=== PATIENT | female | born 1990 | race Caucasian/White ===

== ENCOUNTER 2018-05-21 22:42 | Emergency (ER) | payer MEDICAID ==
[~2018-05-21] VITALS: Ht 152.4 cm; Wt 63.5 kg
[2018-05-21 22:51] VITALS: BP 120/61
--- NOTE | 2018-05-21 23:21 | NUR ---
PT TAKEN TO BED 2
--- NOTE | 2018-05-21 23:41 | NUR ---
PT TO ED WITH C/O URINARY URGENCY AND FREQUENCY. PT DENIES VAGINAL DISCHARGE OR BLEEDING. PT REPORTS BEING SEEN AT [facility] AND PER PT "THEY GAVE ME A PILL BUT ITS NOT WORKING". PT PLACED INTO BED, PENDING MD SALVADOR. PMH--DENIES
[2018-05-21 23:55] LABS: APPEARANCE,URINE CLEAR (CLEAR); BILIRUBIN,URINE NEGATIVE (NEGATIVE); BLOOD, URINE NEGATIVE (NEGATIVE); COLOR,URINE YELLOW (YELLOW); LEUKOCYTE ESTERASE ,URINE NEGATIVE (NEGATIVE); NITRITE, URINE NEGATIVE (NEGATIVE); UGLUCOSE NEGATIVE (NEGATIVE)
[2018-05-21] MEDS ORDERED: KETOROLAC 30 MG/ML VIAL IM ONE (23:55)
[2018-05-22] MEDS ORDERED: PHENAZOPYRIDINE 100 MG TAB PO ONE (01:45)
--- NOTE | 2018-05-22 01:45 | NUR ---
Female clerical coordinator by RN accompanied Dr. Anderson for patients pelvic exam.
[2018-05-22 02:37] VITALS: BP 118/59
--- NOTE | 2018-05-22 02:37 | NUR ---
Patient discharged with v/s stable. Written and verbal after care instructions given and explained. Patient alert, oriented and verbalized understanding of instructions. Ambulatory with steady gait. All questions addressed prior to discharge. ID band removed. Patient advised to follow up with PMD. Rx of PYRIDUM, BENTYL, FLAGYL given. Patient educated on indication of medication including possible reaction and side effects. Opportunity to ask questions provided and answered.
[2018-05-24 08:43] LABS: CHLAMYDIA TRACHOMATIS AMP DNA Negative (Negative)
== END 2018-05-22 02:37 | disposition home or self-care (01) ==
LOC: MED 22:42
DX: N76.0 Acute vaginitis (principal); J06.9 Acute upper respiratory infection, unspecified; R14.0 Abdominal distension (gaseous); H92.03 Otalgia, bilateral
CPT/HCPCS: 36415; 81003; 81025; 87210; 87491; 87804; 96372; 99283; J1885